=== PATIENT | female | born 1965 | race Asian ===

== ENCOUNTER 2023-04-24 12:03 | Emergency (ER) | payer OTHER ==
[2023-04-24 12:28] VITALS: BP 131/87; PULSE 75; RESP 18; TEMP 98; BMI 21.9
[2023-04-24] MEDS ORDERED: ONDANSETRON 4 MG/2 ML VIAL IVPUSH ONE (13:18)
[2023-04-24] MEDS ORDERED: ACETAMINOPHEN 1000 MG/100 ML BAG IVPB ONE (13:18)
[2023-04-24] MEDS ORDERED: SODIUM CHLORIDE 0.9% 500 ML INFUS.BAG IV ONE (13:18)
[2023-04-24] MEDS ORDERED: ONDANSETRON 4 MG/2 ML VIAL ONE (13:55)
[2023-04-24 14:01] LABS: URINE APPEARANCE TURBID; URINE BILIRUBIN NEGATIVE (NEGATIVE); URINE COLOR YELLOW; URINE GLUCOSE (UA) NEGATIVE (NEGATIVE); URINE KETONE TRACE (NEGATIVE); URINE LEUK ESTERASE NEGATIVE (NEGATIVE); URINE NITRITE NEGATIVE (NEGATIVE); URINE PROTEIN NEGATIVE (NEGATIVE); URINE UROBILINOGEN 0.2 mg/dL (0.2-1.0)
[2023-04-24 14:20] LABS: BASO % 0.4 % (0-2.0); EOS % 1.1 % (0-4.5); HEMATOCRIT 43.6 % (32.4-45.2); HEMOGLOBIN 14.9 GM/dL (10.7-15.3); LYMPH % 17.5 % (8-40); MCH 33.1 pg (25.7-33.7); MCHC 34.3 g/dl (32.0-36.0); MEAN CELL VOLUME 96.5 fl (80-96); MEAN PLT VOLUME 7.3 fl (7.5-11.1); MONO % 9.3 % (3.8-10.2); NEUT % 71.7 % (42.8-82.8); PLATELET COUNT 285 10^3/uL (134-434); RBC 4.52 M/mm3 (3.60-5.2); RDW 14.1 % (11.6-15.6); WHITE BLOOD COUNT 6.2 K/mm3 (4.0-10.0)
[2023-04-24 14:42] LABS: POTASSIUM 3.7 mmol/L (3.5-5.1)
[2023-04-24 14:45] LABS: ALBUMIN 4.3 g/dl (3.4-5.0); BLOOD UREA NITROGEN 8.3 mg/dL (7-18)
[2023-04-24 14:48] LABS: CREATININE 0.7 mg/dL (0.55-1.3)
[2023-04-24 14:49] LABS: BILIRUBIN,TOTAL 0.6 mg/dL (0.2-1)
[2023-04-24 14:50] LABS: TOT PROT 8.4 g/dl (6.4-8.2)
== END 2023-04-24 16:11 | disposition home or self-care (01) ==
LOC: JER 12:03
PROC: 3E033NZ Introduction of Analgesics, Hypnotics, Sedatives into Peripheral Vein, Percutaneous Approach (ICD-10-PCS; principal; 2023-04-24)
PROC: 3E033GC Introduction of Other Therapeutic Substance into Peripheral Vein, Percutaneous Approach (ICD-10-PCS; 2023-04-24)
DX: R10.84 Generalized abdominal pain (principal); R19.7 Diarrhea, unspecified; Z20.822 Contact with and (suspected) exposure to COVID-19
CPT/HCPCS: 0241U-QW; 36415; 74177-TC; 80053; 81003; 82150; 83690; 85025; 87086; 99285-25; Q9967

== ENCOUNTER 2023-09-16 15:09 | Emergency (ER) | payer OTHER ==
[2023-09-16 15:33] VITALS: BP 110/78; PULSE 84; RESP 16; TEMP 98.6; BMI 23.4
== END 2023-09-16 17:38 | disposition home or self-care (01) ==
LOC: JER 15:09
DX: S22.41XA Multiple fractures of ribs, right side, initial encounter for closed fracture (principal); R07.89 Other chest pain; W08.XXXA Fall from other furniture, initial encounter; Y93.89 Activity, other specified; Y92.009 Unspecified place in unspecified non-institutional (private) residence as the place of occurrence of the external cause
CPT/HCPCS: 71101-TC-RT-FY; 99283-25

== ENCOUNTER 2023-12-23 20:12 | Emergency (ER) | payer SELFPAY ==
[2023-12-23 20:40] VITALS: TEMP 98; BMI 24.6
[2023-12-23] MEDS: SODIUM CHLORIDE 1,000 ML IV STA (22:17)
[2023-12-23 22:19] LABS: BASO % 1.3 % (0-2.0); EOS % 1.6 % (0-4.5); HEMATOCRIT 38.2 % (32.4-45.2); HEMOGLOBIN 12.7 GM/dL (10.7-15.3); LYMPH % 18.1 % (8-40); MCH 31.7 pg (25.7-33.7); MCHC 33.3 g/dl (32.0-36.0); MEAN CELL VOLUME 95.3 fl (80-96); MONO % 11.4 % (3.8-10.2); NEUT % 67.6 % (42.8-82.8); PLATELET COUNT 409 10^3/uL (134-434); RBC 4.01 M/mm3 (3.60-5.2); RDW 14.5 % (11.6-15.6); WHITE BLOOD COUNT 5.5 K/mm3 (4.0-10.0)
[2023-12-23 22:25] LABS: INR 0.86 (0.83-1.09); PROTHROMBIN TIME (PATIENT) 9.9 SEC (9.7-13.0)
[2023-12-23 22:27] LABS: ACTIVATED PTT 29.9 SECONDS (25.2-36.5)
[2023-12-23 22:41] LABS: POTASSIUM 3.9 mmol/L (3.5-5.1)
[2023-12-23 22:43] LABS: ALBUMIN 3.6 g/dl (3.4-5.0); BLOOD UREA NITROGEN 9.3 mg/dL (7-18); MAGNESIUM 2.3 mg/dL (1.8-2.4)
[2023-12-23 22:47] LABS: CREATININE 0.5 mg/dL (0.55-1.3)
[2023-12-23 22:48] LABS: BILIRUBIN,TOTAL 0.2 mg/dL (0.2-1); TOT PROT 6.7 g/dl (6.4-8.2)
[2023-12-24 00:35] VITALS: BP 117/80; PULSE 78; RESP 16
== END 2023-12-24 00:34 | disposition home or self-care (01) ==
LOC: JER 20:12
PROC: 3E0337Z Introduction of Electrolytic and Water Balance Substance into Peripheral Vein, Percutaneous Approach (ICD-10-PCS; principal; 2023-12-23)
DX: R55 Syncope and collapse (principal); Z20.822 Contact with and (suspected) exposure to COVID-19
CPT/HCPCS: 0241U-QW; 36415; 70450-TC; 71046-TC-FY; 80053; 82550; 83735; 84484; 85025; 85610; 85730; 93005; 93010; 99285-25